=== PATIENT | male | born 1955 | race Caucasian/White ===

== ENCOUNTER 2018-05-25 08:28 | Outpatient (CLI) | payer OTHER ==
[~2018-05-25] VITALS: Ht 152.4 cm; Wt 86.2 kg
== END 2018-05-25 08:45 | disposition home or self-care (01) ==
LOC: OFIC 805 08:28
DX: R42 Dizziness and giddiness (principal); H61.23 Impacted cerumen, bilateral

== ENCOUNTER 2018-05-31 12:34 | Outpatient (CLI) | payer OTHER ==
[~2018-05-31] VITALS: Ht 152.4 cm; Wt 86.2 kg
== END 2018-05-31 12:50 | disposition home or self-care (01) ==
LOC: OFIC 805 12:34
DX: H90.3 Sensorineural hearing loss, bilateral (principal); H93.13 Tinnitus, bilateral

== ENCOUNTER 2018-06-18 13:38 | Outpatient (CLI) | payer OTHER ==
[~2018-06-18] VITALS: Ht 152.4 cm; Wt 86.2 kg
== END 2018-06-18 14:00 | disposition home or self-care (01) ==
LOC: OFIC 805 13:38
DX: H93.13 Tinnitus, bilateral (principal); H90.3 Sensorineural hearing loss, bilateral